=== PATIENT | female | born 1970 | race Caucasian/White ===

== ENCOUNTER → 2016-08-07 | Outpatient (CLI) | payer MEDICAID ==
[~2016-08-07] MED LIST: BACTRIM DS 8001 TAB PO; CITALOPRAM HYDR40 MG PO; ETODOLAC400 MG PO; GABAPENTIN600 MG PO; LEVAQUIN 750 M750 MG PO; LORTAB 10/3251 TAB PO; LORTAB 5/500 501 TAB PO; OMEPRAZOLE40 MG PO; ZOFRAN4 MG PO
--- NOTE | 2016-08-08 10:51 | RADIOLOGY REPORT PS360 ---
MRI-L-SPINE W/O, MRI-3D RENDERING/MYELOGRAM HISTORY: Right-sided low back pain with right leg pain and numbness and tingling with right leg weakness LUMBAR DISC DISEASE WITH RADICULOPATHY ORDERING PHYSICIAN: Brandon Mead MD PATIENT AGE: 45 years COMPARISON: None TECHNIQUE: Standard multiplanar multiecho sequences are performed without contrast. 3-D MIP and myelographic images are also rendered and reviewed FINDINGS: There is normal alignment. The spinal cord and at the L1-L2 level. L1-L2, L2-L3, L3-L4 have an unremarkable appearance. There is minimal ligamentum flavum hypertrophy at L4-L5 with minimal left lateral recess narrowing. Very minimal bulging disc at L5-S1 with mild facet hypertrophic change and mild bilateral foraminal narrowing. 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 Probable small left renal cortical cyst at 9 mm. No disc herniation or canal stenosis. IMPRESSION: 1. Minimal bulging disc and mild facet hypertrophic change at L5-S1 with mild bilateral foraminal narrowing 2. Mild left lateral recess narrowing at L4-L5. 3. No disc herniation or canal stenosis
--- NOTE | 2016-08-11 10:32 | RADIOLOGY REPORT PS360 ---
DIG MAMM-SCREEN JARETH W/CAD CAD Screening COMPARISON: Analog mammograms 11/09/2008 INDICATION: There is a history of breast cancer in the patient's 2 aunts after menopause TECHNIQUE: Standard CC and MLO images were obtained. R2 CAD reviewed. FINDINGS: The breasts are composed primarily of fat with minimal scattered fibroglandular densities in each breast. There are few benign-appearing calcination is in each breast. There is a mole marker left breast. There is no suspicious lesion and there are no suspicious microcalcifications. IMPRESSION: Fibrofatty parenchyma no suspicious lesion seen recommend yearly follow-up BI-RADS CATEGORY: 2_Benign RECOMMENDED FOLLOWUP: 12M 12 MONTH FOLLOW-UP (A letter has been sent to the patient regarding results of the study.)
== END ==
LOC: RAD 07-14 13:45
DX: M51.17 Intervertebral disc disorders with radiculopathy, lumbosacral region (principal); Z12.31 Encounter for screening mammogram for malignant neoplasm of breast
CPT/HCPCS: G0202

== ENCOUNTER → 2016-10-13 | Outpatient (CLI) | payer MEDICAID ==
[2016-10-13 16:37] LABS: AMPHETAMINES/METAMPHETAMINES NEGATIVE ng/mL (<1000)
== END ==
LOC: LAB 15:56
PROVIDERS: Emergency Medicine
DX: Z79.899 Other long term (current) drug therapy (principal)

== ENCOUNTER → 2017-01-01 | Outpatient (CLI) | payer MEDICAID ==
[2017-01-01 14:55] LABS: AMPHETAMINES/METAMPHETAMINES POSITIVE ng/mL (<1000)
== END ==
LOC: LAB 14:11
PROVIDERS: Emergency Medicine
DX: Z79.899 Other long term (current) drug therapy (principal)

== ENCOUNTER → 2017-02-05 | Outpatient (CLI) | payer MEDICAID ==
[2017-02-05 16:40] LABS: AMPHETAMINES/METAMPHETAMINES NEGATIVE ng/mL (<1000)
== END ==
LOC: LAB 15:31
PROVIDERS: Emergency Medicine
DX: Z79.899 Other long term (current) drug therapy (principal)

== ENCOUNTER → 2017-03-07 | Outpatient (CLI) | payer MEDICAID ==
[2017-03-07 12:36] LABS: AMPHETAMINES/METAMPHETAMINES NEGATIVE ng/mL (<1000)
== END ==
LOC: LAB 10:57
PROVIDERS: Emergency Medicine
DX: Z79.899 Other long term (current) drug therapy (principal)